=== PATIENT | male | born 1975 | race American Indian/Alaskan Native ===

== ENCOUNTER 2017-11-30 16:40 | Emergency (ER) | payer MEDICAID, OTHER ==
[2017-11-30 16:57] VITALS: BP 154/90
[2017-11-30] MEDS ORDERED: Bacitracin Oint 1 GM U/D Packet TOP ONE (17:10)
[2017-11-30] MEDS ORDERED: Diphtheria,Pertussis(Acell),Tetanus Vaccine 0.5 ML SDV IM ONE (17:10)
--- NOTE | 2017-11-30 17:13 | EDM.PDOC ---
ED HPI GENERAL MEDICAL PROBLEM - General Chief Complaint: Laceration Stated Complaint: L POINTER FINGER INJURY Time Seen by Provider: 11/30/17 17:05 Source of Information: Reports: Patient History Limitations: Reports: No Limitations - History of Present Illness INITIAL COMMENTS - FREE TEXT/NARRATIVE: 42-year-old male with an injury to his index finger of the left hand. He was working with a small curved blade and accidentally stabbed himself through the pulp of the index finger. He has 2 wounds, an entry and exit wound. They are both small lacerations less than 1 cm with approximated edges, but still bleeding slightly. He also thinks there is some slight numbness to the pulp of the finger so cutaneous nerves may have been involved. Onset: Sudden Duration: Hour(s): (Within the last few hours) Location: Reports: Upper Extremity, Left Associated Symptoms: Reports: No Other Symptoms Left Hand Pain Score (Numeric/FACES): 4 - Related Data Allergies Allergy/AdvReac Type Severity Reaction Status Date / Time No Known Allergies Allergy Verified 03/31/16 19:36 Home Meds: Home Meds NK [No Known Home Meds] 08/11/15 [History] Past Medical History Musculoskeletal History: Reports: Fracture Other Musculoskeletal History: Left arm at age 7 Psychiatric History: Reports: Suicidal Ideation - Infectious Disease History Infectious Disease History: Reports: Chicken Pox - Past Surgical History HEENT Surgical History: Reports: Other (See Below) Social & Family History - Family History Family Medical History: Unobtainable - Tobacco Use Smoking Status *Q: Former Smoker Used Tobacco, but Quit: Yes Month Tobacco Last Used: 6 months - Caffeine Use Caffeine Use: Reports: Coffee, Tea - Recreational Drug Use Recreational Drug Use: No ED ROS GENERAL - Review of Systems Review Of Systems: See Below Constitutional: Denies: Fever, Chills Respiratory: Reports: No Symptoms Cardiovascular: Reports: No Symptoms GI/Abdominal: Reports: No Symptoms Neurological: Reports: Paresthesia (At the distal finger) Psychiatric: Reports: No Symptoms ED EXAM, SKIN/RASH Exam: See Below Exam Limited By: No Limitations General Appearance: Alert, No Apparent Distress Respiratory/Chest: No Respiratory Distress Extremities: Other (Remainder of exam is limited to the left hand. The patient has 2 small lacerations on the palmar aspect of the index finger distal to the DIP joint. No repair is needed.) Neurological: Alert, Oriented Course - Vital Signs Last Recorded V/S: Last Vital Signs Temp 98.1 F 11/30/17 16:59 Pulse 97 11/30/17 16:59 Resp 16 11/30/17 16:59 BP 154/90 H 11/30/17 16:59 Pulse Ox 95 11/30/17 16:59 - Orders/Labs/Meds Orders: Active Orders 24 hr Category Date Time Status Vaccines to be Administered [RC] PER UNIT ROUTINE Care 11/30/17 17:10 Active Meds: Medications Discontinued Medications Generic Name Dose Route Start Last Admin Trade Name Flakita PRN Reason Stop Dose Admin Bacitracin 1 dose 11/30/17 17:10 11/30/17 17:19 Bacitracin Oint 1 Gm TOP 11/30/17 17:11 1 dose ONETIME ONE Administration Diphtheria/Tetanus/Acell Pertussis 0.5 ml 11/30/17 17:10 11/30/17 17:18 Adacel IM 11/30/17 17:11 0.5 ml .ONCE ONE Administration - Re-Assessments/Exams Free Text/Narrative Re-Assessment/Exam: 11/30/17 17:12 The finger was cleaned, bacitracin was applied and the finger bandaged. He was given a TDap, and placed on cephalexin 3 times a day for the next 7 days. He can return if concerns of infection or not healing satisfactorily. Departure - Departure Time of Disposition: 17:23 Disposition: Home, Self-Care 01 Condition: Good Clinical Impression: Finger laceration Qualifiers: Encounter type: initial encounter Finger: index finger Damage to nail status: without damage Foreign body presence: without foreign body Laterality: left Qualified Code(s): S61.211A - Laceration without foreign body of left index finger without damage to nail, initial encounter - Discharge Information Instructions: VIS, Diphtheria, Tetanus, and Pertussis (DTaP) - CDC, Laceration Care, Adult, [id number] Referrals: PCP,None [Primary Care Provider] - Forms: ED Department Discharge Care Plan Goals: Keep the wound covered and clean while healing. Take antibiotic 3 times a day until gone and return if concerns of infection or not healing satisfactorily. - My Orders Last 24 Hours: My Active Orders 11/30/17 17:10 Vaccines to be Administered [RC] PER UNIT ROUTINE - Assessment/Plan Last 24 Hours: My Active Orders 11/30/17 17:10 Vaccines to be Administered [RC] PER UNIT ROUTINE
== END 2017-11-30 17:25 | disposition home or self-care (01) ==
LOC: JP.ED 16:40
DX: S61.211A Laceration without foreign body of left index finger without damage to nail, initial encounter (principal); Z23 Encounter for immunization; Z87.891 Personal history of nicotine dependence; W45.8XXA Other foreign body or object entering through skin, initial encounter; Y92.69 Other specified industrial and construction area as the place of occurrence of the external cause; Y99.0 Civilian activity done for income or pay
CPT/HCPCS: 90471; 90715; 99283-25

== ENCOUNTER 2022-09-27 22:52 | Emergency (ER) | payer MEDICAID ==
[2022-09-27 23:10] VITALS: BP 124/83; PULSE 103
== END 2022-09-27 23:46 | disposition home or self-care (01) ==
LOC: JP.ED 22:52
DX: R00.2 Palpitations (principal)
CPT/HCPCS: 99283

== ENCOUNTER 2024-02-05 14:33 | Emergency (ER) | payer MEDICAID, OTHER ==
[2024-02-05 15:17] VITALS: BP 142/89; PULSE 89
[2024-02-05] MEDS: HYDROmorphone 1 MG/ML Syringe IM ONE (15:47)
== END 2024-02-05 16:18 | disposition home or self-care (01) ==
LOC: JP.ED 14:33
DX: S86.111A Strain of other muscle(s) and tendon(s) of posterior muscle group at lower leg level, right leg, initial encounter (principal); X50.1XXA Overexertion from prolonged static or awkward postures, initial encounter; Y93.89 Activity, other specified
CPT/HCPCS: 96372; 99283; J1170